=== PATIENT | male | born 1985 | race African-American/Black ===

== ENCOUNTER 2018-01-17 08:25 | Emergency (ER) | payer SELFPAY ==
[~2018-01-17] VITALS: Ht 182.9 cm; Wt 102.1 kg
[~2018-01-17 08:25] MED LIST: IBUPROFEN600 MG ORAL; ROBAXIN-750750 MG PO
[2018-01-17 08:30] VITALS: BP 142/97
[2018-01-17] MEDS ORDERED: NKM (08:32)
[2018-01-17] MEDS ORDERED: Lidocaine 1% 10mg/ml/Epi 0.005mg/ml 30ml vial INJ ONE (09:00)
[2018-01-17] MEDS ORDERED: Dexamethasone 4mg/ml vial IVP ONE (09:00)
[2018-01-17] MEDS ORDERED: Ketorolac 30mg Inj IV ONE (09:00)
[2018-01-17] MEDS ORDERED: Azithromycin 500 MG in NS 275 ML IV ONE (09:00)
--- NOTE | 2018-01-17 09:06 | Emergency Room Report ---
History of Present Illness General Chief Complaint: Sore Throat Source: Patient Present Illness HPI Patient has had 3 days of increased throat pain. He can't open his mouth well. There's been a change in his voice. He's having trouble swallowing. He's had fevers and chills. He's tried NyQuil with some minimal relief. There is swelling in the right side of his throat. Pain rated 10/10, sharp, pressure and aching. Radiates somewhat down side of neck. No cough, NVD, dysuria, rashes. Never with problem like this in past. Allergies: Coded Allergies: No Known Allergies (Unverified , 08/18/15) Patient History Past Medical History: see triage record Social History: Denies: smoking, alcohol use Social History Narrative from home Reviewed Nursing Documentation: PMH: Agreed; PSxH: Agreed Nursing Documentation-PMH Past Medical History: No History, Except For Review of Systems All Other Systems: negative except mentioned in HPI Physical Exam Vital Signs Date Time Temp Pulse Resp B/P (MAP) Pulse Ox O2 Delivery O2 Flow Rate FiO2 01/17/18 08:28 98.3 106 16 142/97 96 Room Air 98.2 Sp02 EP Interpretation: reviewed, normal General Appearance: well appearing, no apparent distress, GCS 15, non-toxic Head: normocephalic, atraumatic Eyes: bilateral eye normal inspection, bilateral eye PERRL ENT: TMs + canals normal, tonsillar swelling - Peritonsillar abscess right, pharyngeal erythema, other - unable to open jaw fully, some hypophonia Neck: supple Respiratory: chest non-tender, lungs clear, normal breath sounds Cardiovascular #1: regular rate, rhythm Cardiovascular #2: 2+ radial (R) Gastrointestinal: normal inspection, normal bowel sounds, non tender, no mass, non-distended Musculoskeletal: back normal, gait/station normal, normal range of motion Neurologic: alert, oriented x3, grossly normal Psychiatric: mood/affect normal Skin: normal inspection, warm/dry Procedures Incision and Drainage Incision and Drainage : I & D Procedure: sterile drapes applied 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 After H2O2 prep, anesthetized with lido with epi. Attempt aspirate with 18 ga spinal needle. Min pus obtained. 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 Rinsed with H2O2. Tolerated well. Medical Decision Making Diagnostic Impression: Primary Impression: Peritonsillar abscess ER Course Patient presents with throat pain and swelling and change in his voice. By exam he has a peritonsillar abscess. This needs to be incised and drained. In addition even though he doesn't appear toxic he's tachycardic therefore needs IV fluids and will be started on IV antibiotics and given a dose of Decadron and also something for pain. Because he is tachycardic labs will be obtained. Pain improved prior to procedure. Peritonsillar abscess was incised and drained. The patient tolerated the procedure well. After this he states he felt something midline that there is swelling. A soft tissue neck was ordered to exclude retropharyngeal abscess. No retropharyngeal abscess. Not orthostatic. Improved with treatment. Patient stable for outpatient observation and treatment. Laboratory Tests Test 01/17/18 09:04 White Blood Count 15.9 K/UL (4.8-10.8) H Red Blood Count 6.03 M/UL (4.70-6.10) Hemoglobin 18.5 G/DL (14.2-18.0) *H Hematocrit 53.2 % (42.0-52.0) H Mean Corpuscular Volume 88 FL (80-99) Mean Corpuscular Hemoglobin 30.7 PG (27.0-31.0) Mean Corpuscular Hemoglobin Concent 34.8 G/DL (32.0-36.0) Red Cell Distribution Width 10.9 % (11.6-14.8) L Platelet Count 283 K/UL (150-450) Mean Platelet Volume 8.7 FL (6.5-10.1) Neutrophils (%) (Auto) 75.9 % (45.0-75.0) H Lymphocytes (%) (Auto) 13.6 % (20.0-45.0) L Monocytes (%) (Auto) 8.7 % (1.0-10.0) Eosinophils (%) (Auto) 0.7 % (0.0-3.0) Basophils (%) (Auto) 1.1 % (0.0-2.0) Sodium Level 135 MMOL/L (136-145) L Potassium Level 3.8 MMOL/L (3.5-5.1) Chloride Level 102 MMOL/L (98-107) Carbon Dioxide Level 25 MMOL/L (21-32) Anion Gap 8 mmol/L (5-15) Blood Urea Nitrogen 16 mg/dL (7-18) Creatinine 1.1 MG/DL (0.55-1.30) Estimate Glomerular Filtration Rate > 60 mL/min (>60) Glucose Level 123 MG/DL (74-106) H Calcium Level 9.7 MG/DL (8.5-10.1) Total Bilirubin 0.8 MG/DL (0.2-1.0) Aspartate Amino Transferase (AST) 24 U/L (15-37) Alanine Aminotransferase (ALT) 34 U/L (12-78) Alkaline Phosphatase 86 U/L (46-116) Total Protein 8.9 G/DL (6.4-8.2) H Albumin 3.8 G/DL (3.4-5.0) Globulin 5.1 g/dL Albumin/Globulin Ratio 0.7 (1.0-2.7) L Other X-Ray Diagnostic Results Other X-Ray Diagnostic Results : X-Ray ordered: soft tissue neck # of Views/Limited Vs Complete: 2 View Indication: Other EP Interpretation: Yes Interpretation: no dislocation, no soft tissue swelling, no fractures, other - no retropharyngeal abscess Impression: Other Electronically Signed by: Electronically signed by Albaro Estevez MD Last Vital Signs Date Time Temp Pulse Resp B/P (MAP) Pulse Ox O2 Delivery O2 Flow Rate FiO2 01/17/18 12:07 92 19 136/78 98 Room Air 01/17/18 12:06 98.3 98.3 Status: improved Disposition: HOME, SELF-CARE Condition: Improved Scripts Ibuprofen* (MOTRIN*) 600 Mg Tablet 600 MG ORAL Q6H PRN for For Pain, #20 TAB Prov: Albaro Estevez M.D. 01/17/18 Tramadol Hcl* (ULTRAM*) 50 Mg Tablet 50 MG ORAL Q6H PRN for For Pain, #10 TAB 0 Refills Prov: Albaro Estevez M.D. 01/17/18 Azithromycin* (ZITHROMAX*) 250 Mg Tablet 250 MG ORAL DAILY, #6 TAB 0 Refills Take two tables once daily for 1 day, then one tablet once daily for 4 days. Prov: Albaro Estevez M.D. 01/17/18 Albaro Estevez M.D. Jan 17, 2018 09:06
[2018-01-17 09:23] LABS: BASOPHILS % (AUTO) 1.1 % (0.0-2.0); EOSINOPHILS % (AUTO) 0.7 % (0.0-3.0); HEMATOCRIT 53.2 % (42.0-52.0); LYMPHOCYTES % (AUTO) 13.6 % (20.0-45.0); MEAN CORPUSCULAR VOLUME 88 FL (80-99); MONOCYTES % (AUTO) 8.7 % (1.0-10.0); NEUTROPHILS % (AUTO) 75.9 % (45.0-75.0); PLATELET COUNT 283 K/UL (150-450); RED BLOOD COUNT 6.03 M/UL (4.70-6.10); RED CELL DISTRIBUTION WIDTH 10.9 % (11.6-14.8); WHITE BLOOD COUNT 15.9 K/UL (4.8-10.8)
[2018-01-17 09:35] LABS: HEMOGLOBIN 18.5 G/DL (14.2-18.0)
[2018-01-17] MEDS ORDERED: TRAMADOL HCL50 MG ORAL (09:53)
[2018-01-17] MEDS ORDERED: ZITHROMAX250 MG ORAL (09:53)
[2018-01-17] MEDS ORDERED: IBUPROFEN600 MG ORAL (09:53)
[2018-01-17 09:55] LABS: ALANINE AMINOTRANSFERASE 34 U/L (12-78); ALBUMIN 3.8 G/DL (3.4-5.0); ALBUMIN/GLOBULIN RATIO 0.7 (1.0-2.7); ALKALINE PHOSPHATASE 86 U/L (46-116); ANION GAP 8 mmol/L (5-15); ASPARTATE AMINO TRANSFERASE 24 U/L (15-37); BILIRUBIN,TOTAL 0.8 MG/DL (0.2-1.0); BLOOD UREA NITROGEN 16 mg/dL (7-18); CALCIUM 9.7 MG/DL (8.5-10.1); CARBON DIOXIDE 25 MMOL/L (21-32); CHLORIDE 102 MMOL/L (98-107); CREATININE 1.1 MG/DL (0.55-1.30); POTASSIUM 3.8 MMOL/L (3.5-5.1); SODIUM 135 MMOL/L (136-145)
[2018-01-17 10:46] VITALS: BP 123/72
[2018-01-17 11:23] VITALS: BP_SYST 122; BP_SYST 123; BP_SYST 131; BP_DIAS 74; BP_DIAS 79; BP_DIAS 90
--- NOTE | 2018-01-17 11:39 | Diagnostic Imaging Report ---
Indication: Neck pain Comparison: None Findings: Two views of the neck performed. There is no soft tissue swelling or mass identified. The epiglottis is unremarkable. Subglottic airway and retropharyngeal region appear clear. No radiopaque foreign body is identified. Impression: Negative evaluation of the neck.
[2018-01-17 12:07] VITALS: BP 136/78
== END 2018-01-17 12:08 | disposition home or self-care (01) ==
LOC: EMR 09:12
DX: J36 Peritonsillar abscess (principal)
CPT/HCPCS: 10060; 36415; 42700; 70360; 80053; 85025; 96361; 96374; 96375; 99284; J0456; J1100; J1885; J7050; 96360